=== PATIENT | male | born 1955 | race Caucasian/White ===

== ENCOUNTER → 2025-08-24 | Outpatient (CLI) | payer MEDICARE ==
[~2025-08-24] MED LIST: ZESTRIL10 MG PO
[2025-08-26 15:07] LABS: ALBUMIN, URINE 37.5 % (.); ALPHA-1-GLOBULIN, URINE 5.6 % (.); ALPHA-2-GLOBULIN, URINE 12.9 % (.); BETA GLOBULIN, URINE 27.6 % (.); GAMMA GLOBULIN, URINE 16.3 % (.); M-SPIKE, % Not Observed % (Not Observed); PROTEIN,TOTAL - URINE RANDOM 7.3 mg/dL (Not Estab.)
== END | disposition home or self-care (01) ==
LOC: LAB 07:51
PROVIDERS: ATTEND Family Medicine
DX: D53.9 Nutritional anemia, unspecified (principal)

== ENCOUNTER → 2025-10-06 | Outpatient (CLI) | payer MEDICARE ==
[2025-10-08 16:08] LABS: ALBUMIN, URINE 44.8 % (.); ALPHA - 2 - GLOBULIN, URINE 9.8 % (.); ALPHA-1-GLOBULIN, URINE 3.8 % (.); BETA GLOBULIN, URINE 21.2 % (.); GAMMA GLOBULIN, URINE 20.4 % (.); M-SPIKE, % Not Observed % (Not Observed); PROTEIN,TOTAL - URINE RANDOM <4.0 mg/dL (Not Estab.)
== END | disposition home or self-care (01) ==
LOC: LAB 08:22
PROVIDERS: ATTEND Internal Medicine Hematology & Oncology
DX: D47.2 Monoclonal gammopathy (principal)